=== PATIENT | female | born 1975 | race Caucasian/White ===

== ENCOUNTER 2019-03-28 13:41 | Emergency (ER) | payer MEDICAID ==
[~2019-03-28] VITALS: Ht 157.5 cm; Wt 67.1 kg
[2019-03-28 13:45] VITALS: BP 149/87
--- NOTE | 2019-03-28 13:50 | NUR ---
Patient ambulated to bed 3. RN evaluating patient at bedside.
--- NOTE | 2019-03-28 14:00 | NUR ---
C/O LOWER ABDOMINAL PAIN X2 DAYS, +VAGINAL BLEEDING, STATED WAS PLAYING WITH HER DAUGHTER AND HER DAUGHTER FELL ON HER, SHE THOUGHT SHE WAS , BUT NOT SURE. DENIES N/V/D; SKIN IS PINK/WARM/DRY; AAOX4 WITH EVEN AND STEADY GAIT; LUNGS CLEAR BL; HR EVEN AND REGULAR; PT DENIES ANY FEVER, CP, SOB, OR COUGH AT THIS TIME; PATIENT STATES PAIN OF 8/10 AT THIS TIME; VSS; PATIENT POSITIONED FOR COMFORT; HOB ELEVATED; BEDRAILS UP X2; BED DOWN. ER MD MADE AWARE OF PT STATUS.
[2019-03-28 15:27] VITALS: BP 138/85
== END 2019-03-28 15:27 | disposition home or self-care (01) ==
LOC: MED 13:41
DX: R10.30 Lower abdominal pain, unspecified (principal); F17.200 Nicotine dependence, unspecified, uncomplicated
CPT/HCPCS: 81002; 81025; 99282

== ENCOUNTER 2019-05-02 15:51 | Emergency (ER) | payer MEDICAID ==
[~2019-05-02] VITALS: Ht 157.5 cm; Wt 65.3 kg
[2019-05-02 16:09] VITALS: BP 149/85
--- NOTE | 2019-05-02 16:16 | NUR ---
PT AMBULATED TO ER BED 09
--- NOTE | 2019-05-02 16:23 | NUR ---
DR BOO AT BEDSIDE
[2019-05-02] MEDS ORDERED: NACL 0.9% 1,000 ML IV SCH (16:26)
[2019-05-02] MEDS ORDERED: ONDANSETRON 4 MG/2 ML VIAL IVP ONE (16:30)
[2019-05-02] MEDS ORDERED: FAMOTIDINE 20 MG/2 ML VIAL IVP ONE (16:30)
--- NOTE | 2019-05-02 16:30 | NUR ---
43 Y FEMALE BIB SELF C/O N/V & DIZZINESS X1 DAY. PT REPORTS DRINKING ALCOHOL THE LAST TWO DAYS, AND TODAY SHE HAS NOT BEEN ABLE TO STOP VOMITING. FSBS 111. DENIES PAIN. BOWEL SOUNDS ACTIVE IN ALL 4 QUADRANTS. ABDOMEN NON-TENDER, SOFT AND ROUND. BP 149/85. 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 AA0X4. BED IS DOWN, LOCKED, BED RAIL X 1, ERMD TO SEE PT. HX: NONE RX: NONE
--- NOTE | 2019-05-02 16:35 | NUR ---
20 G L AC AND LABS DRAWN BEDSIDE
--- NOTE | 2019-05-02 17:00 | NUR ---
NADR AT THIS TIME. AA0X4. PAIN 0/10.
[2019-05-02 17:24] LABS: BASOPHILS % (AUTO) 0.2 % (0.0-2.0); EOSINOPHILS % (AUTO) 0.2 % (0.0-4.0); HEMATOCRIT 39.2 % (36-48); HEMOGLOBIN 13.6 g/dL (12.0-16.0); LYMPHOCYTES # (AUTO) 0.8 K/uL (2.5-16.5); LYMPHOCYTES % (AUTO) 13.8 % (20.5-51.1); MEAN CORPUSCULAR HEMOGLOBIN 34 pg (27-31); MEAN CORPUSCULAR HGB CONC 35 g/dL (33-37); MEAN CORPUSCULAR VOLUME 97.5 fL (80-94); MONOCYTES # (AUTO) 0.4 K/uL (0.8-1.0); MONOCYTES % (AUTO) 7.4 % (1.7-9.3); NEUTROPHILS # (AUTO) 4.6 K/uL (1.8-7.7); NEUTROPHILS % (AUTO) 78.4 % (42.2-75.2); PLATELET COUNT (AUTO) 152 K/uL (140-450); RED BLOOD CELL COUNT(AUTO) 4.02 MIL/uL (4.20-5.40); RED CELL DISTRIBUTION WIDTH 13.4 % (11.6-13.7); WHITE BLOOD COUNT (AUTO) 5.9 K/uL (4.8-10.8)
--- NOTE | 2019-05-02 17:37 | NUR ---
PT AMB TO RESTROOM WITH STEADY GAIT
[2019-05-02 17:45] LABS: ANION GAP 11.9 (8-16); CARBON DIOXIDE 26.2 mmol/L (21-32); CREATININE 0.7 mg/dL (0.6-1.3); POTASSIUM 3.1 mmol/L (3.5-5.1)
[2019-05-02 17:50] LABS: ALBUMIN 4.1 g/dL (3.4-5.0)
[2019-05-02 18:22] VITALS: BP 137/82
--- NOTE | 2019-05-02 18:22 | NUR ---
Patient discharged with v/s stable. Written and verbal after care instructions given and explained. Patient alert, oriented and verbalized understanding of instructions. Ambulatory with steady gait. All questions addressed prior to discharge. ID band removed. Patient advised to follow up with PMD. Rx of ZOFRAN, PEPCID given. Patient educated on indication of medication including possible reaction and side effects. Opportunity to ask questions provided and answered.
== END 2019-05-02 18:22 | disposition home or self-care (01) ==
LOC: MED 15:51
DX: K29.20 Alcoholic gastritis without bleeding (principal); F17.200 Nicotine dependence, unspecified, uncomplicated; Z71.6 Tobacco abuse counseling
CPT/HCPCS: 36415; 80053; 81025; 83690; 85025; 96361; 96374; 96375; 99283; J2405; J3490; J7030

== ENCOUNTER 2020-12-18 01:25 | Emergency (ER) | payer MEDICAID ==
[~2020-12-18] VITALS: Ht 157.5 cm; Wt 63.5 kg
[2020-12-18 01:35] VITALS: BP 163/72
[2020-12-18] MEDS ORDERED: LORazepam 2 MG/ML VIAL IM ONE (01:40)
--- NOTE | 2020-12-18 01:41 | NUR ---
45 YR OLD FEMALE PRESENTED TO THE ER WITH CC OF CHEST PALPITATIONS. PT IS AOX4. PT STATES 10 SHARP NON-RADIATING CHEST PALPITATION THAT STARTED 1 HOUR AGO AFTER SMOKING MARIJUANA. PT DENIES OTHER DRUG USE. PT STATES DRINKING 1 CUP OF VODKA. PT STATES NAUSEA. PT DENIES OTHER MEDICAL COMPLAINTS. EMESIS BAG PROVIDED TO PT. BED LOCKED IN LOWEST POSITION WITH 1 SIDE RAIL UP. WILL CONTINUE TO MONITOR. HISTORY- NONE ALLERGIES- NONE
--- NOTE | 2020-12-18 02:06 | NUR ---
PT STATES DIFFICULTY BREATHING. PT LUNG SOUNDS CLEAR BILATERALLY. PT IS O2 SATURATION IS 100% ON ROOM AIR. ERMD AWARE OF PT STATUS AND DIFFICULTY BREATHING.
[2020-12-18 03:44] VITALS: BP 114/72
--- NOTE | 2020-12-18 03:44 | NUR ---
Patient discharged with v/s stable. Written and verbal after care instructions given and explained. Patient verbalized understanding. Ambulatory with steady gait. All questions addressed prior to discharge. Advised to follow up with PMD.
== END 2020-12-18 03:44 | disposition home or self-care (01) ==
LOC: MED 01:25
DX: F12.10 Cannabis abuse, uncomplicated (principal); R00.2 Palpitations
CPT/HCPCS: 96372; 99283; J2060

== ENCOUNTER 2021-05-06 23:09 | Emergency (ER) | payer MEDICAID ==
[~2021-05-06] VITALS: Ht 157.5 cm; Wt 62.6 kg
[2021-05-06 23:16] VITALS: BP 140/93
[2021-05-07] MEDS ORDERED: KETOROLAC 30 MG/ML VIAL IM ONE (01:10)
[2021-05-07 01:32] LABS: ANION GAP 11.2 (8-16); CARBON DIOXIDE 27.6 mmol/L (21-32); CREATININE 0.7 mg/dL (0.6-1.3); POTASSIUM 3.8 mmol/L (3.5-5.1)
--- NOTE | 2021-05-07 02:05 | NUR ---
TO ER BED 4
[2021-05-07 02:06] LABS: BASOPHILS % (AUTO) 0.1 % (0.0-2.0); HEMATOCRIT 41.3 % (36-48); HEMOGLOBIN 14.5 g/dL (12.0-16.0); MEAN CORPUSCULAR HEMOGLOBIN 35 pg (27-31); MEAN CORPUSCULAR HGB CONC 35 g/dL (33-37); MEAN CORPUSCULAR VOLUME 99.9 fL (80-94); MONOCYTES # (AUTO) 0.9 K/uL (0.8-1.0); MONOCYTES % (AUTO) 6.3 % (1.7-9.3); PLATELET COUNT (AUTO) 137 K/uL (140-450); RED BLOOD CELL COUNT(AUTO) 4.14 MIL/uL (4.20-5.40); RED CELL DISTRIBUTION WIDTH 13.4 % (11.6-13.7)
[2021-05-07 02:07] LABS: NEUTROPHILS % (AUTO) 86.6 % (42.2-75.2)
--- NOTE | 2021-05-07 03:00 | NUR ---
SEE PATIENT ASSESSMENT FOR MORE INFORMATION. PATIENT LAYING IN BED LOCKED IN LOWEST POSITION X1 SIDERAIL UP, BREATHING EVEN AND UNLABORED. NAD NOTED, WILL CONTINUE TO MONITOR.
[2021-05-07] MEDS ORDERED: cefTRIAXone 1,000 MG VIAL ONE (03:50)
--- NOTE | 2021-05-07 03:54 | NUR ---
PER ERMD, CANCEL ROCEPHIN MEDICATION NOT TO BE ADMINISTERED.
--- NOTE | 2021-05-07 04:41 | NUR ---
Patient appears to be resting comfortably in bed. Vital Signs within normal limits. Respirations even and unlabored. NO NOTED DISTRESS AT THIS TIME.
--- NOTE | 2021-05-07 05:06 | NUR ---
PATIENT LAYING IN BED W EYES CLOSED, BED LOCKED IN LOWEST POSITION, X1 SIDERAIL UP. BREATHING EVEN AND UNLABORED. NAD NOTED, WILL CONTINUE TO MONITOR.
[2021-05-07] MEDS ORDERED: CEPH-588 PO (06:09)
[2021-05-07] MEDS ORDERED: cephALEXin 500 MG CAP PO ONE (06:35)
[2021-05-07 06:45] VITALS: BP 119/54
== END 2021-05-07 06:45 | disposition home or self-care (01) ==
LOC: MED 23:09
DX: N12 Tubulo-interstitial nephritis, not specified as acute or chronic (principal)
CPT/HCPCS: 74176; 80048; 81002; 81025; 85025; 96372; 99284; J1885; 36415; J0696

== ENCOUNTER 2021-05-11 11:16 | Emergency (ER) | payer MEDICAID ==
[~2021-05-11] VITALS: Ht 157.5 cm; Wt 59.9 kg
[~2021-05-11 11:16] MED LIST: CEPH-588 PO
[2021-05-11 11:30] VITALS: BP 113/83
[2021-05-11 13:35] LABS: BASOPHILS % (AUTO) 0.3 % (0.0-2.0); EOSINOPHILS % (AUTO) 0.3 % (0.0-4.0); HEMATOCRIT 40.4 % (36-48); LYMPHOCYTES # (AUTO) 1.1 K/uL (2.5-16.5); LYMPHOCYTES % (AUTO) 8.2 % (20.5-51.1); MEAN CORPUSCULAR HEMOGLOBIN 35 pg (27-31); MEAN CORPUSCULAR HGB CONC 35 g/dL (33-37); MEAN CORPUSCULAR VOLUME 100.9 fL (80-94); MONOCYTES # (AUTO) 1.2 K/uL (0.8-1.0); MONOCYTES % (AUTO) 8.8 % (1.7-9.3); NEUTROPHILS % (AUTO) 82.4 % (42.2-75.2); PLATELET COUNT (AUTO) 139 K/uL (140-450); RED CELL DISTRIBUTION WIDTH 13.4 % (11.6-13.7); WHITE BLOOD COUNT (AUTO) 13.4 K/uL (4.8-10.8)
[2021-05-11 13:48] LABS: APPEARANCE,URINE CLEAR (CLEAR); BILIRUBIN,URINE NEGATIVE (NEGATIVE); BLOOD, URINE NEGATIVE (NEGATIVE); COLOR,URINE YELLOW (YELLOW); LEUKOCYTE ESTERASE ,URINE TRACE (NEGATIVE); NITRITE, URINE NEGATIVE (NEGATIVE); UGLUCOSE NEGATIVE (NEGATIVE)
[2021-05-11 14:06] LABS: ALBUMIN 3.9 g/dL (3.4-5.0); ANION GAP 10.4 (8-16); CARBON DIOXIDE 28.6 mmol/L (21-32); CREATININE 0.7 mg/dL (0.6-1.3)
[2021-05-11] MEDS ORDERED: DICYCLOMINE HCL LIQUID 20 MG, ALUMINUM HYD/MAG/SIMETHICONE 30 ML, LIDOCAINE VISCOUS 2% ... PO ONE ×3 (14:55)
--- NOTE | 2021-05-11 14:55 | NUR ---
Patient ambulated to bed 2 with a steady gait.
--- NOTE | 2021-05-11 14:56 | NUR ---
PA Martinez at the bedside evaluating patient.
--- NOTE | 2021-05-11 15:02 | NUR ---
45 Y/O F BIB SELF FROM HOME, C/O FEVER, HEADACHE, LOWER BACK PAIN, BODY ACHES AND EPIGASTRIC PAIN FOR 5 DAYS. DENIES N/V/D, SOB, COUGH, AND CP. PMH: DENIES MED: CEPHALEXIN NKA
[2021-05-11] MEDS ORDERED: DICYCLOMINE HCL LIQUID 10 MG/5 ML UDC ONE (15:03)
[2021-05-11] MEDS ORDERED: ALUMINUM HYD/MAG/SIMETHICONE 30 ML UDC ONE (15:03)
--- NOTE | 2021-05-11 15:08 | NUR ---
Katie swab collected and handed to the corn lab technician.
[2021-05-11 15:15] LABS: RBC,URINE 0-5 /HPF (0-5)
[2021-05-11 15:16] LABS: YEAST,URINE Few /HPF (None Seen)
[2021-05-11] MEDS ORDERED: BEN10 PO (15:59)
[2021-05-11] MEDS ORDERED: OMEP20EC11 PO (15:59)
[2021-05-11] MEDS ORDERED: ONDA4TAB PO (15:59)
[2021-05-11 16:33] VITALS: BP 113/83
--- NOTE | 2021-05-11 16:33 | NUR ---
Patient discharged with v/s stable. Written and verbal after care instructions given and explained. Patient alert, oriented and verbalized understanding of instructions. Ambulatory with steady gait. All questions addressed prior to discharge. ID band removed. Patient advised to follow up with PMD. Rx of dicyclomine hydrochloride, omeprazole, ondansetron hcl given. Patient educated on indication of medication including possible reaction and side effects. Opportunity to ask questions provided and answered.
== END 2021-05-11 16:33 | disposition home or self-care (01) ==
LOC: MED 11:16
DX: K76.0 Fatty (change of) liver, not elsewhere classified (principal); Z20.822 Contact with and (suspected) exposure to COVID-19; Z79.899 Other long term (current) drug therapy
CPT/HCPCS: 36415; 76705; 80053; 81001; 81025; 83690; 85025; 87086; 99284

== ENCOUNTER 2022-10-24 17:06 | Emergency (ER) | payer MEDICAID ==
[~2022-10-24] VITALS: Ht 157.5 cm; Wt 67.6 kg
[~2022-10-24 17:06] MED LIST changes: +BEN10 PO; +OMEP20EC11 PO; +ONDA4TAB PO
[2022-10-24 17:31] VITALS: BP 137/74
[2022-10-24] MEDS ORDERED: IBUPROFEN 600 MG TAB PO ONE (19:00)
[2022-10-24] MEDS ORDERED: NAPR-54 PO (20:01)
[2022-10-24 20:23] VITALS: BP 128/74
== END 2022-10-24 20:23 | disposition home or self-care (01) ==
LOC: MED 17:06
DX: S66.911A Strain of unspecified muscle, fascia and tendon at wrist and hand level, right hand, initial encounter (principal); R03.0 Elevated blood-pressure reading, without diagnosis of hypertension; Z79.899 Other long term (current) drug therapy; Z79.1 Long term (current) use of non-steroidal anti-inflammatories (NSAID); Z79.2 Long term (current) use of antibiotics; X58.XXXA Exposure to other specified factors, initial encounter; Y92.89 Other specified places as the place of occurrence of the external cause; Y93.89 Activity, other specified; Y99.8 Other external cause status
CPT/HCPCS: 73110; 99283

== ENCOUNTER 2023-08-21 21:44 | Emergency (ER) | payer MEDICAID, OTHER ==
[~2023-08-21] VITALS: Ht 157.5 cm; Wt 70.8 kg
[~2023-08-21 21:44] MED LIST changes: +NAPR-54 PO
[2023-08-21 22:05] VITALS: BP 126/83; PULSE 80; RESP 18; TEMP 97; O2SAT 99
[2023-08-22] MEDS ORDERED: KETOROLAC 30 MG/ML VIAL IM ONE (00:40)
[2023-08-22] MEDS ORDERED: NAPR-54 PO (00:57)
== END 2023-08-22 01:02 | disposition home or self-care (01) ==
LOC: MED 21:44
DX: M79.672 Pain in left foot (principal); Z79.899 Other long term (current) drug therapy; Z79.1 Long term (current) use of non-steroidal anti-inflammatories (NSAID); Z79.2 Long term (current) use of antibiotics
CPT/HCPCS: 73630; 99283; J1885

== ENCOUNTER 2023-09-27 10:36 | Emergency (ER) | payer OTHER ==
[~2023-09-27] VITALS: Ht 157.5 cm; Wt 68.5 kg
[2023-09-27 10:41] VITALS: BP 123/87; PULSE 86; RESP 18; TEMP 97.3; O2SAT 96
[2023-09-27] MEDS ORDERED: KETOROLAC 30 MG/ML VIAL IM ONE (12:25)
[2023-09-27] MEDS ORDERED: LID5T TP (13:19)
[2023-09-27] MEDS ORDERED: NAPR-54 PO (13:19)
[2023-09-27] MEDS ORDERED: ACET-8905 PO (13:19)
[2023-09-27] MEDS ORDERED: KETOROLAC 30 MG/ML VIAL ONE (13:52)
[2023-09-27 14:07] VITALS: BP 123/86; PULSE 86; RESP 18; TEMP 97.3; O2SAT 96
[2023-09-28] MEDS ORDERED: CYCL-711 PO (18:30)
[2023-09-28] MEDS ORDERED: LIDO76.56 TP (18:30)
[2023-09-28] MEDS ORDERED: IBUP-2218 PO (18:30)
== END 2023-09-27 14:10 | disposition home or self-care (01) ==
LOC: MED 10:36
DX: S39.012A Strain of muscle, fascia and tendon of lower back, initial encounter (principal); Z79.899 Other long term (current) drug therapy; Z79.1 Long term (current) use of non-steroidal anti-inflammatories (NSAID); Z79.2 Long term (current) use of antibiotics; W01.0XXA Fall on same level from slipping, tripping and stumbling without subsequent striking against object, initial encounter; Y93.41 Activity, dancing; Y92.89 Other specified places as the place of occurrence of the external cause; Y99.8 Other external cause status
CPT/HCPCS: 72100; 81025; 96372; 99283; J1885

== ENCOUNTER 2023-09-28 14:16 | Emergency (ER) | payer OTHER ==
[~2023-09-28] VITALS: Ht 157.5 cm; Wt 68.5 kg
[~2023-09-28 14:16] MED LIST changes: +ACET-8905 PO; +LID5T TP
[2023-09-28 14:39] VITALS: BP 113/66; PULSE 94; RESP 15; TEMP 97.8; O2SAT 98
[2023-09-28 16:12] LABS: BASOPHILS % (AUTO) 0.4 % (0.0-2.0); EOSINOPHILS % (AUTO) 0.6 % (0.0-4.0); HEMATOCRIT 39.7 % (36-48); HEMOGLOBIN 14.2 g/dL (12.0-16.0); LYMPHOCYTES # (AUTO) 1.7 K/uL (2.5-16.5); LYMPHOCYTES % (AUTO) 30.1 % (20.5-51.1); MEAN CORPUSCULAR HEMOGLOBIN 34 pg (27-31); MEAN CORPUSCULAR HGB CONC 36 g/dL (33-37); MEAN CORPUSCULAR VOLUME 95.3 fL (80-94); MONOCYTES # (AUTO) 0.5 K/uL (0.8-1.0); MONOCYTES % (AUTO) 9.2 % (1.7-9.3); NEUTROPHILS # (AUTO) 3.4 K/uL (1.8-7.7); NEUTROPHILS % (AUTO) 59.7 % (42.2-75.2); PLATELET COUNT (AUTO) 197 K/uL (140-450); RED BLOOD CELL COUNT(AUTO) 4.16 MIL/uL (4.20-5.40); RED CELL DISTRIBUTION WIDTH 12.8 % (11.6-13.7); WHITE BLOOD COUNT (AUTO) 5.8 K/uL (4.8-10.8)
[2023-09-28] MEDS ORDERED: KETOROLAC 30 MG/ML VIAL IM ONE (16:25)
[2023-09-28] MEDS ORDERED: LIDOCAINE 5% 1 EA PATCH TP ONE (16:25)
[2023-09-28 16:27] LABS: ANION GAP 10.6 (8-16); CALCIUM 9.4 mg/dL (8.5-10.1); CARBON DIOXIDE 30.3 mmol/L (21-32); CREATININE 0.7 mg/dL (0.6-1.3); POTASSIUM 3.9 mmol/L (3.5-5.1)
[2023-09-28 16:31] LABS: ALBUMIN 3.5 g/dL (3.4-5.0); BILIRUBIN,DIRECT 0.3 mg/dL (0.0-0.3); TOTAL BILIRUBIN 0.9 mg/dL (0.0-1.0); TOTAL PROTEIN, SERUM 8.1 g/dL (6.4-8.2)
[2023-09-28] MEDS ORDERED: CYCL-711 PO (18:30)
[2023-09-28] MEDS ORDERED: IBUP-2218 PO (18:30)
[2023-09-28] MEDS ORDERED: LIDO76.56 TP (18:30)
== END 2023-09-28 18:35 | disposition home or self-care (01) ==
LOC: MED 14:16
DX: S39.012A Strain of muscle, fascia and tendon of lower back, initial encounter (principal); Z79.899 Other long term (current) drug therapy; Z79.1 Long term (current) use of non-steroidal anti-inflammatories (NSAID); Z79.2 Long term (current) use of antibiotics; W18.39XA Other fall on same level, initial encounter; Y93.41 Activity, dancing; Y92.89 Other specified places as the place of occurrence of the external cause; Y99.8 Other external cause status
CPT/HCPCS: 36415; 74176; 80048; 80076; 81002; 81025; 83690; 85025; 96372; 99285; J1885